=== PATIENT | male | born 1955 | race American Indian/Alaskan Native ===

== ENCOUNTER 2021-11-09 17:50 | Emergency (ER) | payer SELFPAY ==
[2021-11-09] MEDS ORDERED: ASPIRIN 325 MG TAB PO ONE (18:17)
[2021-11-09 19:15] LABS: Basophils # (Auto) 0.1 K/mm3 (0.0-0.1); Basophils % (Auto) 0.7 % (0.0-1.8); Hematocrit 43.1 % (35.5-45.6); Hemoglobin 14.9 gm/dl (11.8-15.2); Lymphocytes # (Auto) 1.6 K/mm3 (1.2-5.4); Lymphocytes % (Auto) 11.7 % (13.4-35.0); Mean Corpuscular HGB Conc 35 % (32-34); Mean Corpuscular Volume 87 fl (84-94); Monocytes # (Auto) 0.9 K/mm3 (0.0-0.8); Monocytes % (Auto) 6.5 % (0.0-7.3); Platelet Count 235 K/mm3 (140-440); Red Blood Count 4.95 M/mm3 (3.65-5.03); Red Cell Distribution Width 13.5 % (13.2-15.2)
[2021-11-09 19:30] LABS: Alanine Aminotransferase 32 units/L (7-56); Albumin 4.1 g/dL (3.9-5); BUN/Creatinine Ratio 9; Blood Urea Nitrogen 9 mg/dL (9-20); Calcium 9.8 mg/dL (8.4-10.2); Hemolysis Index 2
--- NOTE | 2021-11-09 19:59 | XRay Report ---
XR chest routine 2V INDICATION / CLINICAL INFORMATION: sob. COMPARISON: None available. FINDINGS: SUPPORT DEVICES: None. HEART /PULMONARY VASCULATURE: Heart is enlarged. Pulmonary vasculature is mildly congested. LUNGS / PLEURA: No significant pulmonary or pleural abnormality. No pneumothorax. ADDITIONAL FINDINGS: No significant additional findings. IMPRESSION: Cardiac enlargement with mild congestion of the pulmonary vasculature, suspect mild CHF. Signer Name: Jr Avendano MD Signed: 11/09/2021 7:54 PM Workstation Name: [id number]
[2021-11-10] MEDS ORDERED: HYDROcodone/ACETAMINOPHEN 5-325 MG TAB PO STA (01:44)
--- NOTE | 2021-11-10 03:10 | Emergency Department Report ---
ED General Adult HPI - General Chief complaint: Extremity Problem,Nontraumatic Stated complaint: GOUT FLARE Time Seen by Provider: 11/09/21 22:13 Source: patient Mode of arrival: Ambulatory Limitations: No Limitations - Related Data Previous Rx's Medication Instructions Recorded Last Taken Type Colchicine [Colcrys] 0.6 mg PO Q2H #20 tablet 11/10/21 Unknown Rx Indomethacin [Indocin] 25 mg PO Q8H #20 cap 11/10/21 Unknown Rx amLODIPine 10 mg PO DAILY #30 tab 11/10/21 Unknown Rx Allergies Allergy/AdvReac Type Severity Reaction Status Date / Time No Known Allergies Allergy Verified 11/09/21 18:17 ED Review of Systems ROS: Stated complaint: GOUT FLARE Other details as noted in HPI ED Past Medical Hx - Past Medical History Hx Hypertension: Yes (noncompliant with meds) Hx Arthritis: Yes (GOUT) - Surgical History Past Surgical History?: No - Social History Smoking Status: Never Smoker - Medications Home Medications: Home Medications Medication Instructions Recorded Confirmed Last Taken Type Colchicine [Colcrys] 0.6 mg PO Q2H #20 tablet 11/10/21 Unknown Rx Indomethacin [Indocin] 25 mg PO Q8H #20 cap 11/10/21 Unknown Rx amLODIPine 10 mg PO DAILY #30 tab 11/10/21 Unknown Rx ED Physical Exam - General Limitations: No Limitations ED Course Vital Signs 11/09/21 11/10/21 18:12 00:22 Temperature 98.7 F Pulse Rate 124 H 112 H Respiratory 20 Rate Blood Pressure 215/124 208/111 O2 Sat by Pulse 100 Oximetry ED Medical Decision Making - Lab Data Result diagrams: 11/09/21 18:34 11/09/21 18:34 Critical care attestation.: If time is entered above; I have spent that time in minutes in the direct care of this critically ill patient, excluding procedure time. ED Disposition Clinical Impression: Hypertension, Gout attack Disposition: 01 HOME / SELF CARE / HOMELESS Is pt being admited?: No Does the pt Need Aspirin: No Condition: Stable Instructions: Hypertension (ED), Low-Purine Eating Plan, Preventing Hypertension, Coronary Artery Disease, Male, Hypertension, Adult, Managing Your Hypertension Prescriptions: amLODIPine 10 mg PO DAILY #30 tab Colchicine [Colcrys] 0.6 mg PO Q2H #20 tablet Indomethacin [Indocin] 25 mg PO Q8H #20 cap Referrals: CARBUCCIA,KHOA, MD [Primary Care Provider] - 3-5 Days
[2021-11-10 03:35] VITALS: BP 161/90
--- NOTE | 2021-11-12 18:48 | Electrocardiograph Report ---
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
--- NOTE | 2021-11-12 18:50 | Electrocardiograph Report ---
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
== END 2021-11-10 03:30 | disposition home or self-care (01) ==
LOC: ED 17:50
DX: I10 Essential (primary) hypertension (principal); M10.9 Gout, unspecified; M19.90 Unspecified osteoarthritis, unspecified site; Z79.899 Other long term (current) drug therapy
CPT/HCPCS: 36415; 71046; 80053; 83880; 84484; 85025; 93005; 96374; 96376; 99284; J3490